=== PATIENT | male | born 1955 | race Caucasian/White ===

== ENCOUNTER → 2018-08-15 | Outpatient (CLI) | payer BC ==
[~2018-08-15] VITALS: Ht 177.8 cm; Wt 72.6 kg
[~2018-08-15] MED LIST: ALBUMIN (HUMAN) 25% 200 ML IV SCH
[2018-08-15 09:08] LABS: INR 1.04 (0.85-1.15); PARTIAL THROMBOPLASTIN TIME 29.3 SEC (26.3-35.5); PROTHROMBIN TIME 10.9 SEC (9.6-11.6)
--- NOTE | 2018-08-15 09:17 | NUR ---
U/S GD PARACENTESIS PROCEDURE PERFORMED BY DR JAIN. PUNCTURE SITE RIGHT LOWER QUADRANT AND PATIENT TOLERATED PROCEDURE WELL. TOTAL REMOVED 6.8LITERS OF CLOUDY BLOOD TINGED FLUID. ALBUMIN 25% 50 GRAMS IV GIVEN DURING PROCEDURE. SPECIMEN SENT TO LAB. END OF PROCEDURE AT 1000. CATHETER REMOVED AND DRESSING APPLIED. NO BLEEDING NOTED. DISCHARGE INSTRUCTIONS GIVEN TO PATIENT AND VERBALIZED UNDERSTANDING. DISCHARGED AMBULATORY. AAO X3 WITH NO C/O PAIN.
== END ==
LOC: RAH 07:52
PROVIDERS: ATTEND Internal Medicine
DX: R18.8 Other ascites (principal); Z79.01 Long term (current) use of anticoagulants
CPT/HCPCS: 36415; 49083; 85610; 85730; 96365; A4215; P9046

== ENCOUNTER → 2018-09-10 | Outpatient (CLI) | payer BC ==
[~2018-09-10] MED LIST changes: +ALBUMIN (HUMAN) 25% 200 ML IV ONE; -ALBUMIN (HUMAN) 25% 200 ML IV SCH
[2018-09-10 08:27] LABS: INR 0.99 (0.85-1.15); PARTIAL THROMBOPLASTIN TIME 29.9 SEC (26.3-35.5); PROTHROMBIN TIME 10.4 SEC (9.6-11.6)
--- NOTE | 2018-09-10 09:45 | NUR ---
U/S GD PARACENTESIS PROCEDURE PERFORMED BY DR Joselyn TUBBS. PUNCTURE SITE RLQ. TOTAL REMOVED 7.1 LITERS OF BLOOD TINGED FLUID. END OF PROCEDURE AT 0915. ALBUMIN 25% 50 GRAMS IV GIVEN POST PROCEDURE. SPECIMEN COLLECTED AND SENT TO LAB. CATHETER REMOVED AND DRESSING APPLIED. NO BLEEDING NOTED. DISCHARGE INSTRUCTIONS GIVEN AND PATIENT VERBALIZED UNDERSTANDING. DISCHARGED VIA AMBULATION AT 0945.
[2018-09-10 13:21] LABS: BF EOSINOPHIL 2 %; BF LYMPHOCYTE 63 %; BF MESOTHELIAL 33 %; BF MONOCYTE 1 %
[2018-09-10 13:29] LABS: APPEARANCE BODY FLUID CLOUDY (CLEAR); BODY FLUID WBC 327 /cu. mm.; COLOR,BODY FLUID RED (LT YELLOW); SPECIMENTYPE,BODY FLUID ASCITES; TOTAL VOLUME,BODY FLUID 7100 mL
[2018-09-10 13:30] LABS: BODY FLUID RBC 23500 /cu. mm.
== END ==
LOC: RAH 07:44
PROVIDERS: ATTEND Internal Medicine
DX: R18.8 Other ascites (principal)
CPT/HCPCS: 36415; 49083; 85610; 85730; 87071; 87205; 89051; 96365; A4215; P9046